=== PATIENT | male | born 1955 | race Caucasian/White ===

== ENCOUNTER 2017-05-01 07:08 | Outpatient (CLI) | payer OTHER ==
[2017-05-01 10:53] LABS: ALBUMIN/GLOBULIN RATIO 1.7 (1.0-2.2); BILIRUBIN,TOTAL 1.5 mg/dL (0.2-1.0); BUN - BLOOD UREA NITROGEN 13 mg/dL (6-20); CALCIUM 9.5 mg/dL (8.5-10.3); CARBON DIOXIDE - CO2 26 mmol/L (21-32); CHLORIDE 105 mmol/L (101-111); CHOL/HDL RATIO 3.4 (<5.0); CHOLESTEROL 168 mg/dL; CREATININE 0.8 mg/dL (0.6-1.2); GFR - MDRD 98 (>89); GLUCOSE 119 mg/dL (70-100); HDL CHOLESTEROL 49 mg/dL; SODIUM 138 mmol/L (135-145); TOTAL PROTEIN 7.2 g/dL (6.7-8.2); TRIGLYCERIDES 93 mg/dL; VLDL CHOLESTEROL 19 mg/dL
== END 2017-05-01 07:09 | disposition home or self-care (01) ==
LOC: LAB.F 07:08
PROVIDERS: ATTEND Physician Assistant
DX: R73.09 Other abnormal glucose (principal); I10 Essential (primary) hypertension
CPT/HCPCS: 36415; 80053; 80061

== ENCOUNTER 2017-07-01 06:10 | Day surgery (SDC) | payer OTHER ==
[2017-07-01] MEDS ORDERED: LACTATED RINGERS 1,000 ML IV ONE (06:36)
[2017-07-01] MEDS ORDERED: MIDAZOLAM 2 MG/2 ML VIAL IVP ONE (07:44)
[2017-07-01] MEDS ORDERED: fentaNYL 100 MCG/2 ML VIAL IVP ONE (07:44)
[2017-07-01 08:40] VITALS: BP 117/78
== END 2017-07-01 06:11 | disposition home or self-care (01) ==
LOC: SDS 06:10
PROVIDERS: ATTEND Surgery
PROC: 0D5N8ZZ Destruction of Sigmoid Colon, Via Natural or Artificial Opening Endoscopic (ICD-10-PCS; 2017-07-01)
PROC: 0DBL8ZX Excision of Transverse Colon, Via Natural or Artificial Opening Endoscopic, Diagnostic (ICD-10-PCS; principal; 2017-07-01 07:30)
DX: Z12.11 Encounter for screening for malignant neoplasm of colon (principal); D12.3 Benign neoplasm of transverse colon; D12.5 Benign neoplasm of sigmoid colon; K62.1 Rectal polyp; K57.30 Diverticulosis of large intestine without perforation or abscess without bleeding; K64.8 Other hemorrhoids; E11.9 Type 2 diabetes mellitus without complications; Z79.84 Long term (current) use of oral hypoglycemic drugs
CPT/HCPCS: 45385; 45388; J7120

== ENCOUNTER 2017-08-07 07:03 | Outpatient (CLI) | payer OTHER ==
[2017-08-07 11:56] LABS: ALBUMIN 4.4 g/dL (3.2-5.5); ALBUMIN/GLOBULIN RATIO 1.5 (1.0-2.2); BILIRUBIN,TOTAL 1.3 mg/dL (0.2-1.0); CALCIUM 9.1 mg/dL (8.5-10.3); CREATININE 0.8 mg/dL (0.6-1.2); TOTAL PROTEIN 7.3 g/dL (6.7-8.2)
[2017-08-07 12:23] LABS: HB2 TOTAL 17.5 g/dL; HEMOGLOBIN A1C 0.64 g/dL; HEMOGLOBIN A1C % 5.5 % (4.6-6.2)
== END 2017-08-07 07:04 | disposition home or self-care (01) ==
LOC: LAB.F 07:03
PROVIDERS: ATTEND Physician Assistant
DX: I10 Essential (primary) hypertension (principal); E11.9 Type 2 diabetes mellitus without complications; E78.5 Hyperlipidemia, unspecified
CPT/HCPCS: 36415; 80053; 83036

== ENCOUNTER 2017-11-27 10:11 | Outpatient (CLI) | payer OTHER ==
--- NOTE | 2017-11-27 14:19 | XRAY Report ---
STANDING BILATERAL KNEES: 11/27/2017 CLINICAL INDICATION: Pain. FINDINGS: Standing frontal and lateral views of the bilateral knees demonstrate no evidence of fracture. Minimal osteoarthritis is present, with small osteophytes. No effusion is present on either side. IMPRESSION: MINIMAL BILATERAL OSTEOARTHRITIS. TD: 11/27/2017 14:18
== END 2017-11-27 10:12 | disposition home or self-care (01) ==
LOC: DI.S 10:11
PROVIDERS: ATTEND Physician Assistant
DX: M17.0 Bilateral primary osteoarthritis of knee (principal)
CPT/HCPCS: 73565

== ENCOUNTER 2018-02-01 08:12 | Outpatient (CLI) | payer OTHER ==
--- NOTE | 2018-02-01 14:30 | Ultrasound Report ---
Procedure Date: 02/01/2018 Accession Number: [id number] / [id number] Procedure: US - Duplex Ext Veins Bilateral CPT Code: FULL RESULT: EXAM: BILATERAL LOWER EXTREMITY VENOUS ULTRASOUND EXAM DATE: 02/01/2018 09:17 AM. CLINICAL HISTORY: SWELLING L R ANKLES WORSENING SEVERE VARICOSITES. COMPARISON: None. TECHNIQUE: Real-time sonographic vascular imaging was performed by the panel installer through the lower extremities utilizing both color-flow and Doppler spectral analysis. Multiple provider relations representative static images were saved for review. FINDINGS: Right: Common Femoral Vein (CFV): Normal. CFV-GSV Junction: Normal. Profunda Femoral Vein (PFV): Normal. Femoral Vein (FV) Prox: Normal. Femoral Vein (FV) Mid: Normal. Femoral Vein (FV) Dist: Normal. Popliteal Vein: Normal. Posterior Tibial Veins: Normal. Peroneal Veins: Normal. Left: Common Femoral Vein (CFV): Normal. CFV-GSV Junction: Normal. Profunda Femoral Vein (PFV): Normal. Femoral Vein (FV) Prox: Normal. Femoral Vein (FV) Mid: Normal. Femoral Vein (FV) Dist: Normal. Popliteal Vein: Normal. Posterior Tibial Veins: Normal. Peroneal Veins: Normal. Other: None. IMPRESSION: No evidence for deep venous thrombosis in the bilateral lower extremities. RADIA
== END 2018-02-01 08:13 | disposition home or self-care (01) ==
LOC: DI 08:12
PROVIDERS: ATTEND Physician Assistant
DX: I83.93 Asymptomatic varicose veins of bilateral lower extremities (principal)
CPT/HCPCS: 93970

== ENCOUNTER 2018-03-24 07:10 | Outpatient (CLI) | payer OTHER ==
[2018-03-24 11:20] LABS: ALBUMIN 4.3 g/dL (3.2-5.5); ALBUMIN/GLOBULIN RATIO 1.2 (1.0-2.2); ALKALINE PHOSPHATASE 52 IU/L (42-121); ALT ALANINE AMINOTRANSFERASE 30 IU/L (10-60); AST ASPARTATE AMINOTRANSFERASE 26 IU/L (10-42); BILIRUBIN,TOTAL 0.9 mg/dL (0.2-1.0); BUN - BLOOD UREA NITROGEN 21 mg/dL (6-20); CALCIUM 9.5 mg/dL (8.5-10.3); CARBON DIOXIDE - CO2 28 mmol/L (21-32); CHLORIDE 101 mmol/L (101-111); CHOL/HDL RATIO 3.1 (<5.0); CHOLESTEROL 199 mg/dL; CREATININE 0.9 mg/dL (0.6-1.2); GFR - MDRD 86 (>89); GLUCOSE 146 mg/dL (70-100); HDL CHOLESTEROL 64 mg/dL; LDL CHOLESTEROL,CALCULATED 124 mg/dL; LDL/HDL RATIO 1.9 (<3.6); SODIUM 138 mmol/L (135-145); VLDL CHOLESTEROL 11 mg/dL
== END 2018-03-24 07:11 | disposition home or self-care (01) ==
LOC: LAB.F 07:10
PROVIDERS: ATTEND Physician Assistant
DX: I10 Essential (primary) hypertension (principal); E78.5 Hyperlipidemia, unspecified
CPT/HCPCS: 36415; 80053; 80061; 83721

== ENCOUNTER 2021-08-11 08:00 | Outpatient (CLI) | payer OTHER | END 2021-08-11 23:59 | LOC: LAB.S 08:00 | PROVIDERS: ATTEND Physician Assistant | DX: U07.1 COVID-19 (principal) | CPT/HCPCS: 87275; 87276 ==

== ENCOUNTER 2021-08-11 11:53 | Outpatient (CLI) | payer MEDICARE, OTHER ==
--- NOTE | 2021-08-11 12:10 | XRAY Report ---
PROCEDURE: Chest 2 View X-Ray INDICATIONS: SHORTNESS OF BREATH TECHNIQUE: 2 view(s) of the chest. COMPARISON: August 02, 2016 FINDINGS: SUPPORT DEVICES: None. LUNGS/PLEURA: Coarsened interstitial markings. Linear density in the left lower lung zone, which may reflect plate atelectasis/scarring. The remaining lung zones appear well aerated. No large pleural ef fusion or pneumothorax. MEDIASTINUM: The cardiomediastinal silhouette is within normal limits. BONES/SOFT TISSUES: No acute abnormality. IMPRESSION: 1.Left lower lung zone plate atelectasis/scarring. Reviewed by: Edgardo Toth MD on 08/11/2021 12:09 PM PST Approved by: Edgardo Toth MD on 08/11/2021 12:[address] [facility] Station ID: [id number]
== END 2021-08-11 11:54 | disposition home or self-care (01) ==
LOC: DI.S 11:53
PROVIDERS: ATTEND Physician Assistant
DX: R06.02 Shortness of breath (principal); J98.11 Atelectasis; U07.1 COVID-19
CPT/HCPCS: 71046; 87275; 87276; U0004

== ENCOUNTER 2021-12-18 09:32 | Outpatient (CLI) | payer MEDICARE ==
--- NOTE | 2021-12-18 10:43 | SLEEP CARE CONSULTATION ---
Information from patient questionnaire entered by Mahin Khoury MA. I have reviewed and concur with the information entered by Mahin Khoury MA. This document represents the service I personally performed and the decisions made by me, Jose Sparks MD, [facility]. History of Present Illness Service Date and Time: 12/18/2021 0932 Reason for Visit: New patient (ONSET 11/2021, NO PRIORS,) Chief Complaint: reports: Snoring, Observed pauses in breathing, Frequent awakenings at night Date of Onset: 20 PLUS YEARS Usual bedtime: 10 PM Time it takes to fall asleep: VARIES (30 MINUTES) Snores at night: Yes Observed to quit breathing while asleep: Yes Sleeps alone due to snoring: No Number of times waking at night: 8 Reasons for waking at night: reports: Pain, Bathroom Toss, Turn, or Twitch while sleeping: Yes Recalls having dreams: Yes Usually gets out of bed at: 0700 Feels refreshed in the morning: No Morning headache: No Sleepy or fatigued during the day: Yes Ever fallen asleep while driving: Yes Takes day naps: Yes Dreams during day naps: Yes Prior sleep studies: No Additional HPI information: I had the pleasure of seeing Mr. Ibarra today regarding the possibility of him having a sleep disorder. As you know, he is a 66-year-old gentleman who complains of frequent awakenings, observed apneas, and loud snore for the past 20 years. The patient tells me that he normally goes to bed around 10 pm, and it takes him approximately 30 minutes to fall asleep. He has been told that he snores loudly and irregularly at night. He has also been observed to stop breathing in his sleep. His can still sleep in the same bed. He can recall waking up on the average of 4 - 6 times during the night. Most of the time he wakes up because of having to use the bathroom and pain. He has awakened occasionally because of choking and having to gasp for air. There is a lot of tossing and turning in his sleep. He has somniloquy (sleep talking) but not somnambulism (sleep walking). Generally, he can recall having dreams. In the morning he usually gets up out of the bed around 7:00 a.m. not feeling refreshed nor rested. He usually does not have a morning headache. During the day he complains of feeling sleepy and fatigued. His score on [place] Sleepiness Scale is 14 out of 24. He never has fallen asleep while driving nor has had any accident due to sleepiness. He usually takes naps during the day. Upon falling asleep during the day, he denies having vivid dreams. He has never had sleep paralysis, experienced cataplexy or symptoms of restless leg syndrome. He denies having impaired concentration during the day. - Parasomnia Symptoms Ever been unable to move upon waking from sleep: No Walks in sleep: No Talks in sleep: Yes Ever acted out dreams in sleep: No Ever felt weak in the knees when startled or emotional: No Bothered by creepy, crawly, restless sensations in legs: No Problems with memory or concentration: No Subjective On therapy, patient: denies: other (2021) Initial [place] Sleepiness Scale score: 15 Past Medical History Past Medical History: reports: Hypertension, Arthritis, Fibromyalgia, Anxiety Social History The patient's occupation is a RE. Patient is and lives in [place]. Have you smoked in the past 12 months: No Alcohol use: Yes Alcohol amount and frequency: 2-3 X DAILY Caffeine use: Yes Caffeine amount and frequency: 3 X DAILY Family History Family history of sleep disordered breathing: Yes Family Hx Sleep Apnea: Father: Snoring Allergies and Home Medications Known drug allergies: Yes (SULFA, CONTRAST DYES) Drug allergies reviewed: Yes Home medication list reviewed: Yes Allergy and home medication list: Allergies Iodinated Contrast Media [Iodinated Contrast Media - Oral and] Allergy (Verified 08/02/16 09:09) Anaphylaxis Sulfa (Sulfonamide Antibiotics) Allergy (Verified 08/02/16 09:09) Unknown Review of Systems Weight gain over past 5 years: 20 Weight loss over past 5 years: 40 Cardiovascular: reports: high blood pressure Respiratory: denies: shortness of breath, wheeze, sputum production, chronic cough, other Gastrointestinal: denies: heartburn, difficulty swallowing, nausea, vomitting, diarrhea, abdominal pain, other Urinary: denies: incontinence, frequency, urgency, impotence, other Neurological: denies: headaches, seizure, head trauma, disorientation, speech dysfunction, gait or balance problems, fainting or unconsciousness, other Psychiatric: denies: Attention Deficit Hyperactivity, anxiety, depression, mood disorder, claustrophobia, other Ear/Nose/Throat: reports: tonsillectomy Endocrine: denies: thyroid disease, history of goiter, sluggishness, too hot or cold, excessive thirst, increased appetite, increased urination, unexplained weakness, other Musculoskeletal: reports: joint swelling Immunologic: denies: sneezing, rash, itching, allergies to food or environment, other Physical Exam Vital signs obtained and entered by: La Nena KHOURY Blood Pressure: 110/79 (RESP 18, PULSE 81, RIGHT,) Heart Rate: 83 O2 Saturation: 96 Height: 6 ft Weight: 250 lb Body Mass Index: 33.9 BMI Classification: Obese Neck circumference: 19 (INCHES) HEENT: No craniofacial malformation Nostrils: patent to airflow Turbinates: normal Septum: deviated right Mouth and throat: narrow oropharynx Soft palate: long Hard palate: normal Uvula: normal Uvula visualization: 25% Mallampati Class III Tongue: normal in size Tonsils: absent bilaterally Chin and jaw: normal size and position Neck: normal w/o lymphadenopathy or thyromegaly Heart: regular rate and rhythm Lungs: clear bilaterally Abdomen: soft Extremities: 2+ edema Neurologic: no focal deficits Impression and Plan IMPRESSION: 1. Obstructive Sleep Apnea-Hypopnea Syndrome, as suggested by history of loud and irregular snoring, observed cessation of breath while asleep, frequent awakenings during the night, unrefreshed sleep, and daytime hypersomnolence. Narrow oropharynx and obesity are common predisposing factors for obstructive sleep apnea-hypopnea syndrome. Untreated obstructive sleep apnea can also cause hypertension. I recommend proceeding to polysomnography to confirm the diagnosis and to assess severity. If he has significant sleep disordered breathing, a manual CPAP titration study will also be performed to find the optimal treatment pressure. I informed the patient of what the sleep studies involve and after some discussion, he agreed to proceed. Plan: 1. Schedule polysomnography + manual CPAP titration study and return in 1 to 2 weeks after the study to discuss result and initiate therapy. 2. Avoid long distance driving or when feeling sleepy. 3. Avoid alcohol, sedative and muscle relaxant around bedtime. 4. Attempt to lose weight. Counseling Topics: Weight control Follow up with Sleep Care in: 1-2 months Visit Type: In Office Time Spent with Patient (minutes): 15 Provider Statement: I spent 100% of the Face to Face Visit with the patient with greater than 50% spent counseling the patient and coordination of care.
[2021-12-18 11:04] VITALS: BP 110/79
== END 2021-12-18 09:33 | disposition home or self-care (01) ==
LOC: SC 09:32
PROVIDERS: ATTEND Internal Medicine Pulmonary Disease
DX: G47.10 Hypersomnia, unspecified (principal); R06.81 Apnea, not elsewhere classified; G47.8 Other sleep disorders; R06.83 Snoring; E66.9 Obesity, unspecified; Z68.33 Body mass index [BMI] 33.0-33.9, adult
CPT/HCPCS: 99202; G0463; 99212

== ENCOUNTER 2022-02-09 13:06 | Outpatient (CLI) | payer MEDICARE ==
[2022-02-09 13:55] VITALS: BP 124/75
--- NOTE | 2022-02-09 13:55 | SLEEP CARE CONSULTATION ---
Information from patient questionnaire entered by Mahin Khoury MA. I have reviewed and concur with the information entered by Mahin Khoury MA. This document represents the service I personally performed and the decisions made by , Yamini Alvarado ARNP. History of Present Illness Service Date and Time: 02/09/2022 1306 Initial [place] Sleepiness Scale score: 15 Current [place] Sleepiness Scale score: 13 (02/09/22) Additional HPI information: KACEY JUAREZ returns with spouse for follow up and results of the recently performed polysomnography. I explained the pathophysiology behind obstructive sleep apnea. We then spent quite a bit of time discussing different treatment options. For mild obstructive sleep apnea, surgery and oral appliance are alternatives to nasal CPAP therapy but in moderate or severe cases, nasal CPAP is the most effective and reliable treatment. Because apnea is primarily in supine position, then positional management therapy could be effective. Methods discussed such as positioning with pillows to prevent supine sleep. I reviewed the impact of weight changes on sleep apnea and strongly recommended losing weight. After some discussion, the patient opted to go with the nasal CPAP therapy. Nasal autoCPAP set at 4-15 cmH20 will be ordered with rationale explained. A manual titration study will be ordered if unable to find optimal pressure with office adjustments. I explained how CPAP machine works and what to expect when using the machine. Using CPAP every night in order to get used to it was emphasized. Patient advised to put CPAP mask on before getting into bed so as not to fall asleep without CPAP. To assist acclimation to CPAP use, it could also be used for a short time during day while reading or watching TV. The patient was instructed to call the CPAP supplier to discuss any mechanical problem that may occur. If the mask given is uncomfortable or is difficult to keep on through the night even with adjustment, contact the CPAP supplier as many will replace with an other mask style if notified before 30 days. If snoring or perceives is not getting enough air or too much air from the machine, notify this office. Patient counseled not drink alcohol less than 4 hours before bedtime as it can increase snoring and apnea. Patient was cautioned about risks of drowsy driving until sleepiness symptoms resolve. Patient denies drowsy driving. Sleep Study - Results Type of Sleep Study: Polysomnography (F/U POLY, 01/24/22 [facility], POS, (SEVERE)) Prior sleep studies: No Polysomnography/Home Sleep Study results: IMPRESSION: The quality of the study is good. The patient had normal sleep efficiency. The sleep architecture was abnormal for sleep fragmentation and reduced amount of time spent in REM and slow wave sleep (N3). Respiratory monitoring showed very severe obstructive sleep apnea-hypopnea (AHI = 80.7) associated with frequent arousals, oxyhemoglobin desaturation and moderate hypoxia (timo oxygen saturation of 71%). The patient only slept supine during this study (supine AHI = 83.1; non-supine = 0.00). Snore was moderate in intensity. There was no significant periodic leg movement of sleep. Cardiac rhythm was normal sinus rhythm without significant arrhythmia. No abnormal behavior (parasomnia) observed during the night. Allergies and Home Medications Known drug allergies: Yes (SULFA AND CONTRASY) Home medication list reviewed: Yes (no changes) Allergy and home medication list: Allergies Iodinated Contrast Media [Iodinated Contrast Media - Oral and] Allergy (Verified 08/02/16 09:09) Anaphylaxis Sulfa (Sulfonamide Antibiotics) Allergy (Verified 08/02/16 09:09) Unknown Review of Systems Review of systems same as previous: No (right heel pain for last 3 weeks) Physical Exam Vital signs obtained and entered by: DARRYN LAUREN Blood Pressure: 124/75 (RESP 18, PULSE 99, LEFT) Heart Rate: 99 O2 Saturation: 98 (PAPER MASK) Height: 6 ft Weight: 254 lb Body Mass Index: 34.4 BMI Classification: Obese Impression and Plan 1. Obstructive Sleep Apnea-Hypopnea Syndrome, very severe, with lowest oxygen saturation of 71%. Obviously this is the cause of the patients symptoms of unrefreshed sleep, and excessive daytime sleepiness. Positive pressure therapy could benefit hypertension, fibromyalgia and anxiety. As mentioned above, the patient will be started on nasal autoCPAP therapy with pressure set at 4-15 cmH2 O. Compliance guidelines also reviewed. A copy of compliance guidelines will be given for reference at check out. Because the apnea is more severe supine, I instructed to avoid sleeping supine using pillow positioning until able to start CPAP use. 2. Hypoxemia, moderate, with a timo oxygen saturation of 71% with 105.7 minutes spent under 89%. His baseline oxygen saturation was low normal with an average oxygen saturation of 89%. * Nasal auto CPAP therapy, pressure at 4-15 cm H2O. * Attempt to lose weight. * Avoid alcohol consumption near bedtime. * Avoid supine sleep until using CPAP. * The patient is again cautioned about driving until sleepiness completely resolves. * Return one month after CPAP obtained. I will assess response to therapy and compliance at that time. Counseling Topics: Sleeping position, Weight loss health impact Visit Type: In Office Time Spent with Patient (minutes): 21 Provider Statement: I spent 100% of the Face to Face Visit with the patient with greater than 50% spent counseling the patient and coordination of care.
== END 2022-02-09 13:07 | disposition home or self-care (01) ==
LOC: SC 13:06
PROVIDERS: ATTEND Nurse Practitioner Family
DX: G47.33 Obstructive sleep apnea (adult) (pediatric) (principal); R09.02 Hypoxemia; E66.9 Obesity, unspecified; Z68.34 Body mass index [BMI] 34.0-34.9, adult
CPT/HCPCS: 99213; G0463; 99212

== ENCOUNTER 2022-06-22 09:02 | Outpatient (CLI) | payer MEDICARE ==
[2022-06-22 09:40] VITALS: BP 122/64
--- NOTE | 2022-06-22 09:40 | SLEEP CARE CONSULTATION ---
Information from patient questionnaire entered by Chantelle Mukherjee. I have reviewed and concur with the information entered by Chantelle Mukherjee. This document represents the service I personally performed and the decisions made by , Yamini Alvarado ARNP. History of Present Illness Service Date and Time: 06/22/2022 09 Previous diagnosis: Very Severe, Obstructive Sleep Apnea-Hypopnea Syndrome AHI: 80.7 (in 2021) Reason for follow up: first compliance Equipment type: CPAP (ResMed) Equipment obtained from: [employer] (got initial supplies) Mask style: Full face Mask brand: Resmed (F20) Backup mask available: No (will keep old mask when replaced) Prior sleep studies: No Type of Sleep Study: Polysomnography (F/U POLY, 01/24/22 [facility], POS, (SEVERE)) HPI additional information: KACEY JUAREZ was diagnosed to have very severe, AHI 80.7, obstructive sleep apnea-hypopnea syndrome and returned today with spouse for CPAP therapy first compliance follow-up. Sleep Study - Results Type of Sleep Study: Polysomnography (F/U POLY, 01/24/22 [facility], POS, (SEVERE)) Prior sleep studies: No CPAP Compliance Data - Data Reviewed with Patient Average duration of nightly device use: 7 HRS 42 MIN Compliance rate %: 100 (04/21/2022-06/19/2022; 60/60 days used) Current pressure setting (cmH2O): 4-15 (mean 10.8, avg 13.2, max 14.2) Average residual AHI: 2.2 Central apnea: 0.3 Obstructive apnea: 0.5 Hypopnea: 1.3 Subjective Patient concerns: reports: mask discomfort (tightens mask to reduce mask leaks), mask leak noise. denies: aerophagia, air blowing in eyes, condensation in mask/hose, nasal congestion, dry mouth, nose, throat, epistaxis Observed to snore while using device: No Current pressure setting perceived as: comfortable On therapy, patient: reports: other (feels he does not get enough sleep and interrupted by pain). denies: drowsiness while driving Initial [place] Sleepiness Scale score: 15 Current [place] Sleepiness Scale score: 6 (06/22/2022) Allergies and Home Medications Drug allergies reviewed: Yes (as listed in EMR) Home medication list reviewed: Yes (no changes) Review of Systems Review of systems same as previous: Yes (no changes) Physical Exam Vital signs obtained and entered by: CHANTELLE Worley MA Blood Pressure: 122/64 (LEFT ARM) Cuff size: long Heart Rate: 92 O2 Saturation: 94 Height: 6 ft Weight: 270 lb 3.2 oz Body Mass Index: 36.6 BMI Classification: Obese Impression and Plan 1. Obstructive Sleep Apnea-Hypopnea Syndrome, very severe, with good treatment compliance and good apnea control. Patient has not felt a great improvement in his sleep quality and restfulness but states his sleep is still interrupted due to pain. His [place] score has reduced from 15/24 to 8/24. The patients pressure will be changed to autoCPAP 11-14 cmH20 to reflect pressure being used. Patient advised to contact me if pressure change is uncomfortable so that it can be adjusted. Goals for apnea control discussed. Patient's apnea severity and rationale for treatment to reduce apnea, improve sleep quality and reduce cardiovascular and cerebrovascular events was reviewed. I also reviewed the benefit of consistent device use of CPAP for hypertension, fibromyalgia and a nxiety. 2. Obesity, unspecified. Currently patients BMI is 36.6. Obesity increases the risk of apnea, CPAP pressure requirements and overall health risks especially cardiovascular and diabetes. Thus patient is advised to lose weight. * Change auto CPAP pressure to 11-14 cmH2O * Notify me if snoring with mask or feeling that the pressure is too much or too little * Attempt to lose weight * Call this office if any problems using CPAP * Return for follow up in 1-2 months, or sooner if concerns arise Counseling Topics: Spare mask, Weight loss health impact Visit Type: In Office Other Participants: Spouse/Significant Other Time Spent with Patient (minutes): 20 Provider Statement: I spent 100% of the Face to Face Visit with the patient with greater than 50% spent counseling the patient and coordination of care.
== END 2022-06-22 09:03 | disposition home or self-care (01) ==
LOC: SC 09:02
PROVIDERS: ATTEND Nurse Practitioner Family
DX: G47.33 Obstructive sleep apnea (adult) (pediatric) (principal); E66.9 Obesity, unspecified; Z68.36 Body mass index [BMI] 36.0-36.9, adult
CPT/HCPCS: 99213; G0463; 99212

== ENCOUNTER 2022-08-24 09:50 | Outpatient (CLI) | payer MEDICARE ==
[2022-08-24 10:32] VITALS: BP 136/82
--- NOTE | 2022-08-24 10:32 | SLEEP CARE CONSULTATION ---
Information from patient questionnaire entered by Leeann Mukherjee. I have reviewed and concur with the information entered by Leeann Mukherjee. This document represents the service I personally performed and the decisions made by , Yamini Alvarado ARNP. History of Present Illness Service Date and Time: 08/24/2022 0950 Previous diagnosis: Very Severe, Obstructive Sleep Apnea-Hypopnea Syndrome AHI: 80.7 (in 2021) Reason for follow up: other (TWO MONTH F/U ) Equipment type: CPAP (ResMed Airsense 11, s/u 03/2022) Equipment obtained from: [employer] (getting supplies) Mask style: Full face Mask brand: Resmed (F20) Backup mask available: Yes (other mask) Last cushion change: needs supplies Prior sleep studies: No Type of Sleep Study: Polysomnography (F/U POLY, 01/24/22 [facility], POS, (SEVERE)) HPI additional information: KACEY JUAREZ was diagnosed to have very severe, AHI 80.7, obstructive sleep apnea-hypopnea syndrome and returned today with spouse for CPAP therapy two month with pressure change follow-up. Sleep Study - Results Type of Sleep Study: Polysomnography (F/U POLY, 01/24/22 [facility], POS, (SEVERE)) Prior sleep studies: No CPAP Compliance Data - Data Reviewed with Patient Average duration of nightly device use: 7 HRS 35 MIN Compliance rate %: 98 (06/24/22-08/22/22; 60/60 days used) Current pressure setting (cmH2O): 11-14 Average residual AHI: 1.1 Central apnea: 0.2 Obstructive apnea: 0.2 Average large leak: 1.4 lpm Subjective Patient concerns: reports: mask discomfort, air blowing in eyes, mask leak noise. denies: aerophagia, condensation in mask/hose, nasal congestion, dry mouth, nose, throat, epistaxis Observed to snore while using device: No Current pressure setting perceived as: comfortable On therapy, patient: reports: other (not feeling a difference in sleep or rest). denies: sleeping better, awakening more refreshed, being more awake and alert during the day, more rested overall, drowsiness while driving Initial [place] Sleepiness Scale score: 15 Current [place] Sleepiness Scale score: 3 (08/24/22) Allergies and Home Medications Drug allergies reviewed: Yes (as listed in EMR) Home medication list reviewed: Yes (no changes) Review of Systems Review of systems same as previous: Yes (no changes) Physical Exam Vital signs obtained and entered by: LEEANN Worley MA Blood Pressure: 136/82 (LEFT ARM) Cuff size: regular Heart Rate: 93 O2 Saturation: 96 Height: 6 ft Weight: 275 lb 3.2 oz Body Mass Index: 37.3 BMI Classification: Obese Impression and Plan 1. Obstructive Sleep Apnea-Hypopnea Syndrome, very severe, with good treatment compliance and good apnea control. Patient has significant improvement of their sleep apnea and are satisfied with current CPAP therapy. Patient having some mask leaks and air blowing into his eyes but he has not changed his mask cushion since starting CPAP therapy. I encouraged him to change the mask cushion as soon as he is able to get further supplies if he does not have one at home. He voiced understanding. Patient's apnea severity and rationale for treatment to reduce apnea, improve sleep quality and reduce cardiovascular and cerebrovascular events was reviewed. I also reviewed the benefit of consistent device use of CPAP for hypertension, anxiety and fibromyalgia. 2. Obesity, unspecified. Currently patients BMI is 37.3. Obesity increases the risk of apnea, CPAP pressure requirements and overall health risks especially cardiovascular and diabetes. Thus patient is advised to lose weight. * Continue auto CPAP pressure at 11-14 cmH2O * Notify me if snoring with mask or feeling that the pressure is too much or too little * Attempt to lose weight * Call this office if any problems using CPAP * Return for follow up in 3 months, or sooner if concerns arise Counseling Topics: Spare mask, Weight loss health impact Visit Type: In Office Other Participants: Spouse/Significant Other Time Spent with Patient (minutes): 20 Provider Statement: I spent 100% of the Face to Face Visit with the patient with greater than 50% spent counseling the patient and coordination of care.
== END 2022-08-24 09:51 | disposition home or self-care (01) ==
LOC: SC 09:50
PROVIDERS: ATTEND Nurse Practitioner Family
DX: G47.33 Obstructive sleep apnea (adult) (pediatric) (principal); E66.9 Obesity, unspecified; Z68.37 Body mass index [BMI] 37.0-37.9, adult
CPT/HCPCS: 99213; G0463; 99212

== ENCOUNTER 2022-11-23 09:48 | Outpatient (CLI) | payer MEDICARE ==
--- NOTE | 2022-11-23 10:41 | SLEEP CARE CONSULTATION ---
Information from patient questionnaire entered by Leeann Mukherjee. I have reviewed and concur with the information entered by Leeann Mukherjee. This document represents the service I personally performed and the decisions made by , Yamini Alvarado ARNP. History of Present Illness Service Date and Time: 11/23/2022 0948 Previous diagnosis: Very Severe, Obstructive Sleep Apnea-Hypopnea Syndrome AHI: 80.7 (in 2021) Reason for follow up: three month (F/U) Equipment type: CPAP (ResMed Airsense 11, s/u 03/2022) Equipment obtained from: [employer] ([employer]) Mask style: Full face Mask brand: Resmed (Airfit F20) Backup mask available: Yes (old mask) Last cushion change: rotating thru 4 mask Prior sleep studies: No Type of Sleep Study: Polysomnography (F/U POLY, 01/24/22 [facility], [place], (SEV[facility])) HPI additional information: KACEY JUAREZ was diagnosed to have very severe, AHI 80.7, obstructive sleep apnea-hypopnea syndrome and returned today with spouse for CPAP therapy three month follow-up. Sleep Study - Results Type of Sleep Study: Polysomnography (F/U POLY, 01/24/22 [facility], [place], ([place])) Prior sleep studies: No CPAP Compliance Data - Data Reviewed with Patient Average duration of nightly device use: 7 HRS 38 MINS Compliance rate %: 100 (08/24/22-11/21/22; 90/90 days used) Current pressure setting (cmH2O): 11-14 Average residual AHI: 1.3 Central apnea: 0.1 Obstructive apnea: 0.3 Subjective Missed days of use due to: reports: mask issues Patient concerns: reports: dry mouth, nose, throat, other (alonso/sores from mask cushion/headgear, once caused bleeding). denies: aerophagia, mask discomfort, air blowing in eyes, mask leak noise, condensation in mask/hose, nasal congestion, epistaxis Observed to snore while using device: No Current pressure setting perceived as: comfortable On therapy, patient: reports: other (still have trouble falling asleep and not feeling more rested; snoring stopped). denies: drowsiness while driving Initial [place] Sleepiness Scale score: 15 Current [place] Sleepiness Scale score: 8 (11/23/22) Allergies and Home Medications Known drug allergies: Yes (as listed) Drug allergies reviewed: Yes Home medication list reviewed: Yes (no changes) Allergy and home medication list: Allergies Iodinated Contrast Media [Iodinated Contrast Media - Oral and] Allergy (Verified 11/22/22 13:44) Anaphylaxis Sulfa (Sulfonamide Antibiotics) Allergy (Verified 11/22/22 13:44) Unknown Review of Systems Review of systems same as previous: Yes (no changes) Physical Exam Vital signs obtained and entered by: LEEANN Worley MA Blood Pressure: 116/68 (left arm) Cuff size: regular Heart Rate: 93 O2 Saturation: 95 Height: 6 ft Weight: 268 lb Body Mass Index: 36.3 BMI Classification: Obese Impression and Plan 1. Obstructive Sleep Apnea-Hypopnea Syndrome, very severe, with good treatment compliance and good apnea control. He does not feel a difference with CPAP use as far as better sleep or restfulness but does not feel it has anything to do with the CPAP. Patient is tightening his ResMed AirFit F20 so much he caused a sore on his nose and had some bleeding once. He gets alonso and soreness on the back of his head. He does like the mask style and would like to try AirTouch F20 to see if it would be better for mask comfort. I will just send a note for him to switch cushion type to AirTouch F20 to his DME. Patient's apnea severity and rationale for treatment to reduce apnea, improve sleep quality and reduce cardiovascular and cerebrovascular events was reviewed. I also reviewed the benefit of consistent device use of CPAP for hypertension, anxiety and fibromyalgia. 2. Obesity, unspecified. Currently patients BMI is 36.3. Obesity increases the risk of apnea, CPAP pressure requirements and overall health risks especially cardiovascular and diabetes. Thus patient is advised to lose weight. * Continue auto CPAP pressure at 11-14 cmH2O * Patient will try AirTouch F20 mask for comfort, less skin irritation * Notify me if snoring with mask or feeling that the pressure is too much or too little * Attempt to lose weight * Call this office if any problems using CPAP * Return for follow up in 6 months, or sooner if concerns arise Counseling Topics: Spare mask, Weight loss health impact Visit Type: In Office Time Spent with Patient (minutes): 21 Provider Statement: I spent 100% of the Face to Face Visit with the patient with greater than 50% spent counseling the patient and coordination of care.
[2022-11-23 10:42] VITALS: BP 116/68
== END 2022-11-23 09:49 | disposition home or self-care (01) ==
LOC: SC 09:48
PROVIDERS: ATTEND Nurse Practitioner Family
DX: G47.33 Obstructive sleep apnea (adult) (pediatric) (principal); E66.9 Obesity, unspecified; Z68.36 Body mass index [BMI] 36.0-36.9, adult
CPT/HCPCS: 99213; G0463; 99212

== ENCOUNTER 2023-06-07 10:42 | Outpatient (CLI) | payer MEDICARE ==
--- NOTE | 2023-06-07 11:21 | Sleep Patient Instructions ---
Sleep Center Visit Summary - Patient Visit Information Reason for Visit: 6 month follow up - Patient Instructions Additional Instructions: You were here for follow up of CPAP therapy. You will be continued on CPAP therapy with pressure at 12-14 cmH2O. You should follow up with sleep care in 12 months. You may contact us sooner for any questions or concerns. - Clinic Information Contact: [facility] [address] [place] [address] [email or web address] T: [phone]
--- NOTE | 2023-06-07 11:25 | SLEEP CARE CONSULTATION ---
Information from patient questionnaire entered by Leeann Mukherjee. I have reviewed and concur with the information entered by Leeann Mukherjee. This document represents the service I personally performed and the decisions made by , Yamini Alvarado ARNP. History of Present Illness Service Date and Time: 06/07/2023 104 Previous diagnosis: Very Severe, Obstructive Sleep Apnea-Hypopnea Syndrome AHI: 80.7 (in 2021) Reason for follow up: six month (F/U) Accompanied by: Spouse Equipment type: CPAP (ResMed Airsense 11, s/u 03/2022) Equipment obtained from: [employer] ([employer]) Mask style: Full face Mask brand: Resmed (AirFit F20) Backup mask available: Yes Last cushion change: rotating through 4 cushions Prior sleep studies: No Type of Sleep Study: Polysomnography (F/U POLY, 01/24/22 [facility], [facility], ([facility])) HPI additional information: KACEY JUAREZ was diagnosed to have very severe, AHI 80.7, obstructive sleep apnea-hypopnea syndrome and returned today with spouse for CPAP therapy six month follow-up. Sleep Study - Results Type of Sleep Study: Polysomnography (F/U POLY, 01/24/22 [facility], [place], (SEVERE)) Prior sleep studies: No CPAP Compliance Data - Data Reviewed with Patient Average duration of nightly device use: 7 HRS 4 MINS Compliance rate %: 93 (12/07/2022-06/04/2023; 169/180 days used) Current pressure setting (cmH2O): 12-14 Average residual AHI: 1.5 Central apnea: 0.1 Obstructive apnea: 0.2 Average large leak: 0.7 L/min Subjective Missed days of use due to: reports: family emergency Patient concerns: reports: dry mouth, nose, throat. denies: aerophagia, mask discomfort, air blowing in eyes, mask leak noise, condensation in mask/hose, nasal congestion, epistaxis Observed to snore while using device: No Current pressure setting perceived as: comfortable On therapy, patient: reports: other (snoring much better). denies: drowsiness while driving Initial [place] Sleepiness Scale score: 15 Current [place] Sleepiness Scale score: 7 (06/07/23) Allergies and Home Medications Known drug allergies: Yes (as listed) Drug allergies reviewed: Yes Home medication list reviewed: Yes (Cyclobenzaprine for back) Allergy and home medication list: Allergies Iodinated Contrast Media [Iodinated Contrast Media - Oral and] Allergy (Verified 06/06/23 12:40) Anaphylaxis Sulfa (Sulfonamide Antibiotics) Allergy (Verified 06/06/23 12:40) Unknown Review of Systems Review of systems same as previous: Yes (NO CHANGE) Physical Exam Vital signs obtained and entered by: LEEANN Worley MA Blood Pressure: 124/70 (LEFT ARM) Cuff size: regular Heart Rate: 95 O2 Saturation: 93 Height: 6 ft Weight: 270 lb 6.4 oz Body Mass Index: 36.6 BMI Classification: Obese Impression and Plan 1. Obstructive Sleep Apnea-Hypopnea Syndrome, very severe, with good treatment compliance and good apnea control. On CPAP therapy, the patient says his snoring is much better but due to pain issues in his back he still does not feel rested or have more energy the next day. He has had some oral dryness. Oral dryness can be reduced by adjusting humidity setting higher or heated hose lower or by adjusting both settings. Verbal instructions given on how to change humidity and heated hose settings with rationale explaining why to change. Patient's apnea severity and rationale for treatment to reduce apnea, improve sleep quality and reduce cardiovascular and cerebrovascular events was reviewed. I also reviewed the benefit of consistent device use of CPAP for hypertension, anxiety and fibromyalgia. 2. Obesity, unspecified. Currently patients BMI is 36.6. Obesity increases the risk of apnea, CPAP pressure requirements and overall health risks especially cardiovascular and diabetes. Thus patient is advised to lose weight. * Continue auto CPAP pressure at 12-14 cmH2O * Notify me if snoring with mask or feeling that the pressure is too much or too little * Attempt to lose weight * Call this office if any problems using CPAP * Return for follow up in 1 year, or sooner if concerns arise Counseling Topics: Spare mask, Weight loss health impact Follow up with Sleep Care in: 1 year Visit Type: In Office Time Spent with Patient (minutes): 20 Provider Statement: I spent 100% of the Face to Face Visit with the patient with greater than 50% spent counseling the patient and coordination of care.
[2023-06-07 11:28] VITALS: BP 124/70; O2SAT 93
== END 2023-06-07 10:43 | disposition home or self-care (01) ==
LOC: SC 10:42
PROVIDERS: ATTEND Nurse Practitioner Family
DX: G47.33 Obstructive sleep apnea (adult) (pediatric) (principal); E66.9 Obesity, unspecified; Z68.36 Body mass index [BMI] 36.0-36.9, adult
CPT/HCPCS: 99213; G0463; 99212